=== PATIENT | male | born 1995 ===

== ENCOUNTER 2019-09-19 10:40 | Outpatient (CLI) | payer OTHER | END 2019-09-19 10:46 | disposition home or self-care (01) | LOC: LAB 10:40 | PROVIDERS: ATTEND Colon & Rectal Surgery | DX: Z20.828 Contact with and (suspected) exposure to other viral communicable diseases (principal); Z11.59 Encounter for screening for other viral diseases ==

== ENCOUNTER 2019-09-23 07:45 | Day surgery (SDC) | payer OTHER | END 2019-09-23 11:20 | disposition home or self-care (01) | LOC: AMB-ENDOS 07:45 → ADM 09:00 → AMB-ENDOS 11:20 | PROVIDERS: ATTEND Colon & Rectal Surgery | DX: K62.89 Other specified diseases of anus and rectum (principal); K62.5 Hemorrhage of anus and rectum; K64.8 Other hemorrhoids; Z12.11 Encounter for screening for malignant neoplasm of colon ==